=== PATIENT | female | born 1930 | race Hispanic/Latino ===

== ENCOUNTER 2018-05-11 13:52 | Inpatient (IN) | payer MEDICARE ==
[2018-05-11] MEDS ORDERED: ZOFRAN ONE (14:23)
[2018-05-11] MEDS ORDERED: NACL 0.9% 1000 ML 1,000 ML IV ONE (14:30)
[2018-05-11] MEDS ORDERED: ZOFRAN IV ONE (14:30)
[2018-05-11] MEDS ORDERED: NACL 0.9% 250ML 250 ML IV ONE (15:01)
[2018-05-11 15:03] LABS: Basophils % (Auto) 0.5 % (0.0-1.8); Eosinophils # (Auto) 0.3 K/mm3 (0.0-0.4); Eosinophils % (Auto) 3.3 % (0.0-4.3); Hematocrit 39.1 % (30.3-42.9); Lymphocytes # (Auto) 1.5 K/mm3 (1.2-5.4); Lymphocytes % (Auto) 17.9 % (13.4-35.0); Mean Corpuscular HGB Conc 33 % (30-34); Mean Corpuscular Hemoglobin 31 pg (28-32); Mean Corpuscular Volume 93 fl (79-97); Monocytes # (Auto) 0.6 K/mm3 (0.0-0.8); Monocytes % (Auto) 7.7 % (0.0-7.3); Platelet Count 199 K/mm3 (140-440); Red Blood Count 4.19 M/mm3 (3.65-5.03); Red Cell Distribution Width 13.6 % (13.2-15.2)
--- NOTE | 2018-05-11 15:03 | Emergency Department Report ---
<JOSE LUNA III - Last Filed: 05/11/18 22:18> ED General Adult HPI - General Chief complaint: Nausea/Vomiting/Diarrhea Stated complaint: HEADACHE Time Seen by Provider: 05/11/18 14:45 - Related Data Home Medications Medication Instructions Recorded Confirmed Last Taken Citalopram [Celexa] 20 mg PO HS 05/02/15 05/11/18 Unknown Levothyroxine Sodium [Unithroid] 100 mcg PO QAM 05/02/15 05/11/18 Unknown Memantine HCl [Namenda Xr] 21 mg PO QDAY 05/02/15 05/11/18 Unknown Alendronate Sodium [Fosamax] 70 mg PO 1XW 05/03/15 05/11/18 Unknown Acetaminophen [Acetaminophen TAB] 650 mg PO Q6H PRN 05/11/18 05/11/18 Unknown Aspirin [Adult Low Dose Aspirin EC] 81 mg PO DAILY 05/11/18 05/11/18 Unknown Cholecalciferol (Vitamin D3) 2,000 unit PO QDAY 05/11/18 05/11/18 Unknown [Vitamin D3] Cyanocobalamin (Vitamin B-12) 1,000 mcg PO DAILY 05/11/18 05/11/18 Unknown [Vitamin B-12] Docusate Sodium [Stool Softener] 100 mg PO BID PRN 05/11/18 05/11/18 Unknown Donepezil HCl [Aricept] 23 mg PO HS 05/11/18 05/11/18 Unknown amLODIPine [Norvasc] 10 mg PO DAILY 05/11/18 05/11/18 Unknown risperiDONE [Risperdal] 0.5 mg PO BID 05/11/18 05/11/18 Unknown Allergies Allergy/AdvReac Type Severity Reaction Status Date / Time No Known Allergies Allergy Unverified 08/14/13 15:30 ED Review of Systems ROS: Stated complaint: HEADACHE Other details as noted in HPI ED Past Medical Hx - Medications Home Medications: Home Medications Medication Instructions Recorded Confirmed Last Taken Type Citalopram [Celexa] 20 mg PO HS 05/02/15 05/11/18 Unknown History Levothyroxine Sodium [Unithroid] 100 mcg PO QAM 05/02/15 05/11/18 Unknown History Memantine HCl [Namenda Xr] 21 mg PO QDAY 05/02/15 05/11/18 Unknown History Alendronate Sodium [Fosamax] 70 mg PO 1XW 05/03/15 05/11/18 Unknown History Acetaminophen [Acetaminophen TAB] 650 mg PO Q6H PRN 05/11/18 05/11/18 Unknown History Aspirin [Adult Low Dose Aspirin EC] 81 mg PO DAILY 05/11/18 05/11/18 Unknown History Cholecalciferol (Vitamin D3) 2,000 unit PO QDAY 05/11/18 05/11/18 Unknown History [Vitamin D3] Cyanocobalamin (Vitamin B-12) 1,000 mcg PO DAILY 05/11/18 05/11/18 Unknown History [Vitamin B-12] Docusate Sodium [Stool Softener] 100 mg PO BID PRN 05/11/18 05/11/18 Unknown History Donepezil HCl [Aricept] 23 mg PO HS 05/11/18 05/11/18 Unknown History amLODIPine [Norvasc] 10 mg PO DAILY 05/11/18 05/11/18 Unknown History risperiDONE [Risperdal] 0.5 mg PO BID 05/11/18 05/11/18 Unknown History ED Course Vital Signs 05/11/18 05/11/18 05/11/18 13:54 17:13 19:14 Temperature 97.7 F 98.7 F Pulse Rate 58 L Respiratory 16 18 Rate Blood Pressure 116/53 O2 Sat by Pulse 97 Oximetry 05/11/18 05/11/18 05/11/18 19:41 19:45 20:00 Temperature Pulse Rate Respiratory Rate Blood Pressure 114/63 114/63 116/68 O2 Sat by Pulse 94 92 Oximetry 05/11/18 05/11/18 05/11/18 20:18 20:30 20:56 Temperature Pulse Rate Respiratory Rate Blood Pressure 114/63 114/63 114/63 O2 Sat by Pulse 80 L Oximetry 05/11/18 05/11/18 05/11/18 21:00 21:18 21:53 Temperature Pulse Rate Respiratory Rate Blood Pressure 116/86 116/86 116/86 O2 Sat by Pulse 96 Oximetry 05/12/18 00:27 Temperature Pulse Rate Respiratory Rate Blood Pressure 116/86 O2 Sat by Pulse 80 L Oximetry - Consultations Consultation #1: Dr. Arauz consulted for admission. Dr. Arauz to assume care and admit patient. Dr. Arauz given full report. 05/11/18 22:17 ED Medical Decision Making - Lab Data Result diagrams: 05/11/18 14:41 05/11/18 14:41 - Medical Decision Making Patient is a 87-year-old female presents for for nausea vomiting, shortness of breath and altered mental status. Patient had a CT scan of the head done which is negative. Patient had a CT of the abdomen with significant only for constipation. Patient also had a chest CTA and it was negative for PE. Patient on lab was found to have a lactic acidosis. Patient appears to be improving however will admit patient to hospitalist service for further evaluation and treatment and observation. Critical care attestation.: If time is entered above; I have spent that time in minutes in the direct care of this critically ill patient, excluding procedure time. ED Disposition Clinical Impression: Dementia, SOB (shortness of breath), Lactic acid acidosis Nausea & vomiting Qualifiers: Vomiting type: unspecified Vomiting Intractability: non-intractable Qualified Code(s): R11.2 - Nausea with vomiting, unspecified Altered mental state Qualifiers: Altered mental status type: unspecified Qualified Code(s): R41.82 - Altered mental status, unspecified Headache Qualifiers: Headache type: unspecified Headache chronicity pattern: acute headache Intractability: intractable Qualified Code(s): R51 - Headache Disposition: 09 OP ADMIT IP TO THIS HOSP Is pt being admited?: Yes Does the pt Need Aspirin: No Condition: Serious Time of Disposition: 22:16 <JANETT LAY - Last Filed: 05/14/18 06:21> ED General Adult HPI - General Source: patient, family, EMS (ems notes not available at time of chart dictation), RN notes reviewed, old records reviewed ([facility] records) Mode of arrival: Stretcher Limitations: Other (patient is demented. Patient is a poor historian) - History of Present Illness Initial comments: This is an 87-year-old female who is not known to this provider previously. The patient has a history of advanced dementia, pulmonary embolus, and is not currently on systemic anticoagulation. She is a resident at a local [facility], [facility] She is sent to the ER for evaluation of nonspecific symptoms. I contacted the [facility] and discussed the events with the patient's caring nurse, Ms. Pritchard. The patient's nurse indicates that earlier on today, the patient was in her usual state of health, when the residence patent legal assistant noticed that the patient had some shaking activity, and reported of the patient's eyes looked "glossy." She also reported that the patient's breathing looked "labored." She reports that prior to this, the patient was in her usual state of health. In the emergency room, the patient denies all complaints. She denies headache, neck pain, chest pain, abdominal pain, shortness of breath, extremity weakness, urinary symptoms. The patient is accompanied by her son, Mr. BRENDA Salmeron; [phone]. He reports the patient appears to be at her baseline and does not endorse any additional complaints at this time. He is not certain the patient's advanced directives. The patient has no complaints or symptoms at this time, and therefore cannot describe the qualitative nature of her symptoms, radiation, exacerbating or relieving factors. -: This morning Radiation: other Quality: other Consistency: other Improves with: other Worsens with: other Associated Symptoms: denies other symptoms, other ED Review of Systems Comment: as per history of present illness (secondary to dementia) ED Past Medical Hx - Past Medical History Hx Hypertension: Yes Hx Deep Vein Thrombosis: Yes Hx Psychiatric Treatment: Yes (psychosis) Hx Dementia: Yes Additional medical history: "bad memory", hypothyroid - Surgical History Additional Surgical History: hysterectomy - Social History Smoking Status: Former Smoker Substance Use Type: None ED Physical Exam - General Limitations: Other (patient is demented) General appearance: alert, in no apparent distress - Head Head exam: Present: atraumatic, normocephalic - Eye Eye exam: Present: normal appearance, PERRL, EOMI, other (visual acuity intact to finger counting, color perception, reading at a close distance). Absent: nystagmus - ENT ENT exam: Present: normal exam, normal orophraynx, mucous membranes moist, normal external ear exam - Neck Neck exam: Present: normal inspection, full ROM. Absent: tenderness, meningismus - Respiratory Respiratory exam: Present: normal lung sounds bilaterally. Absent: respiratory distress - Cardiovascular Cardiovascular Exam: Present: regular rate, normal rhythm, normal heart sounds. Absent: bradycardia, tachycardia, irregular rhythm, systolic murmur, diastolic murmur, rubs, gallop - GI/Abdominal GI/Abdominal exam: Present: soft. Absent: distended, tenderness, guarding, rebound, rigid, pulsatile mass - Extremities Exam Extremities exam: Present: normal inspection, full ROM, normal capillary refill , pedal edema, other (2+ pulses noted in the bilateral upper, lower extremities. Compartments soft. No long bony tenderness. The pelvis is stable.). Absent: calf tenderness - Back Exam Back exam: Present: normal inspection, full ROM. Absent: tenderness, CVA tenderness (R), paraspinal tenderness, vertebral tenderness - Neurological Exam Neurological exam: Present: alert (patient is alert to name, month and location) , CN II-XII intact (there is no temporal tenderness), other (Extraocular movements intact. Tongue midline. No facial droop. Facial sensation intact to light touch in the V1, V2, V3 distribution bilaterally. 5 and 5 strength in 4 extremities.. Sensation is intact to light touch in 4 extremities.). Absent : motor sensory deficit - Psychiatric Psychiatric exam: Present: flat affect - Skin Skin exam: Present: warm, dry, intact, normal color. Absent: rash ED Course - Reevaluation(s) Reevaluation #1: 05/11/18 17:09 Differential diagnosis, including but not limited to: Intracranial hemorrhage, pneumonia, pulmonary embolus, intra-abdominal infection, urinary tract infection , arrhythmia, structural cardiac disease Assessment and plan: 87-year-old female who was sent to the ER for evaluation of possible convulsion, change in respiratory pattern and nonspecific symptoms. The patient has no recollection of these events. She has no complaints at this time. Her physical exam shows lower extremity edema, left greater than right. A DVT study was negative. Her EKG is essentially unremarkable. CT scan of the brain, chest, abdomen, pelvis is pending. Extensive discussion had with son. If no significant objective abnormality can be demonstrated or is demonstrated in the ER, the patient's son prefers that the patient be discharged back to the [facility], as he is concerned about iatrogenic risks of hospitalization in the extreme elderly, including delirium, DVT, hospital- acquired diarrhea, slip and fall, sundowning. Given her advanced age, I agree with this and it is my pain of the patient's son has her best goals of care and mine. He is not certain ultimately about her advance directives. Reevaluation #2: 09/06/18 19:51 The patient has been observed in the ER for 6 hours without clinical decompensation. She's not had any episodes of seizures, syncope or any kind distress whatsoever. A noncontrast CT scan of the brain is negative. Elevated lactic acid is appreciated, however she is not hypotensive, and does not appear to be demonstrating signs of acute or occult bacteremia. This may be a type II lactic acidosis. Based on the clinical history, I do not currently suspect tissue dysoxia, inadequate perfusion, or sepsis., I rediscussed with the patient's son, and he again reiterates his desire for the patient to be discharged back to the [facility] if no significant disease is noted on CT scans. Care will be transferred to the oncoming physician, Dr. Caitlin Luna, to follow up on CT scan results and repeat lactic acid. Plan to discharge if no significant findings noted. 05/11/18 19:53 ED Medical Decision Making - Lab Data Result diagrams: 05/12/18 04:47 05/12/18 04:47 Vital Signs 05/11/18 13:54 Temperature 97.7 F Pulse Rate 58 L Respiratory 16 Rate Blood Pressure 116/53 O2 Sat by Pulse 97 Oximetry Lab Results 05/11/18 05/11/18 05/11/18 Range/Units 14:41 14:41 15:24 WBC 8.3 (4.5-11.0) K/mm3 RBC 4.19 (3.65-5.03) M/mm3 Hgb 13.0 (10.1-14.3) gm/dl Hct 39.1 (30.3-42.9) % MCV 93 (79-97) fl MCH 31 (28-32) pg MCHC 33 (30-34) % RDW 13.6 (13.2-15.2) % Plt Count 199 (140-440) K/mm3 Lymph % (Auto) 17.9 (13.4-35.0) % Billings % (Auto) 7.7 H (0.0-7.3) % Eos % (Auto) 3.3 (0.0-4.3) % Baso % (Auto) 0.5 (0.0-1.8) % Lymph # 1.5 (1.2-5.4) K/mm3 Billings # 0.6 (0.0-0.8) K/mm3 Eos # 0.3 (0.0-0.4) K/mm3 Baso # 0.0 (0.0-0.1) K/mm3 Seg Neutrophils % 70.6 H (40.0-70.0) % Seg Neutrophils # 5.8 (1.8-7.7) K/mm3 PT 13.8 (12.2-14.9) Sec. INR 1.01 (0.87-1.13) APTT 25.8 (24.2-36.6) Sec. Sodium 140 (137-145) mmol/L Potassium 3.7 (3.6-5.0) mmol/L Chloride 104.0 (98-107) mmol/L Carbon Dioxide 23 (22-30) mmol/L Anion Gap 17 mmol/L BUN 18 H (7-17) mg/dL Creatinine 0.8 (0.7-1.2) mg/dL Estimated GFR > 60 ml/min BUN/Creatinine Ratio 23 % Glucose 172 H (65-100) mg/dL Lactic Acid (0.7-2.0) mmol/L Calcium 9.5 (8.4-10.2) mg/dL Total Bilirubin 0.30 (0.1-1.2) mg/dL AST 23 (5-40) units/L ALT 23 (7-56) units/L Alkaline Phosphatase 61 (35-129) units/L Troponin T (0.00-0.029) ng/mL Total Protein 6.8 (6.3-8.2) g/dL Albumin 3.9 (3.9-5) g/dL Albumin/Globulin Ratio 1.3 % Lipase 19 (13-60) units/L 05/11/18 05/11/18 Range/Units 15:24 15:24 WBC (4.5-11.0) K/mm3 RBC (3.65-5.03) M/mm3 Hgb (10.1-14.3) gm/dl Hct (30.3-42.9) % MCV (79-97) fl MCH (28-32) pg MCHC (30-34) % RDW (13.2-15.2) % Plt Count (140-440) K/mm3 Lymph % (Auto) (13.4-35.0) % Billings % (Auto) (0.0-7.3) % Eos % (Auto) (0.0-4.3) % Baso % (Auto) (0.0-1.8) % Lymph # (1.2-5.4) K/mm3 Billings # (0.0-0.8) K/mm3 Eos # (0.0-0.4) K/mm3 Baso # (0.0-0.1) K/mm3 Seg Neutrophils % (40.0-70.0) % Seg Neutrophils # (1.8-7.7) K/mm3 PT (12.2-14.9) Sec. INR (0.87-1.13) APTT (24.2-36.6) Sec. Sodium (137-145) mmol/L Potassium (3.6-5.0) mmol/L Chloride (98-107) mmol/L Carbon Dioxide (22-30) mmol/L Anion Gap mmol/L BUN (7-17) mg/dL Creatinine (0.7-1.2) mg/dL Estimated GFR ml/min BUN/Creatinine Ratio % Glucose (65-100) mg/dL Lactic Acid 2.20 H* (0.7-2.0) mmol/L Calcium (8.4-10.2) mg/dL Total Bilirubin (0.1-1.2) mg/dL AST (5-40) units/L ALT (7-56) units/L Alkaline Phosphatase (35-129) units/L Troponin T < 0.010 (0.00-0.029) ng/mL Total Protein (6.3-8.2) g/dL Albumin (3.9-5) g/dL Albumin/Globulin Ratio % Lipase (13-60) units/L - EKG Data 05/11/18 17:12 Normal sinus, 70 beats per minute, normal axis, normal intervals, borderline prolonged OH interval, motion artifact, not a STEMI. - Radiology Data Radiology results: report reviewed, image reviewed Bilateral lower extremity DVT study is negative as per technologist. Formal interpretation is pending from physician. ED Disposition Is pt being admited?: No Does the pt Need Aspirin: No
[2018-05-11 15:10] LABS: Alanine Aminotransferase 23 units/L (7-56); Albumin 3.9 g/dL (3.9-5); BUN/Creatinine Ratio 23; Blood Urea Nitrogen 18 mg/dL (7-17); Calcium 9.5 mg/dL (8.4-10.2); Hemolysis Index 16; Lipase 19 units/L (13-60)
[2018-05-11 16:14] LABS: INR 1.01 (0.87-1.13)
[2018-05-11 16:15] LABS: Partial Thromboplastin Time 25.8 Sec. (24.2-36.6)
[2018-05-11 17:42] LABS: Bilirubin,Urine NEG (Negative); Blood,Urine NEG (Negative); Color,Urine Yellow (Yellow); Mucus,Urine FEW /HPF; Urobilinogen,Urine < 2.0 mg/dL (<2.0)
--- NOTE | 2018-05-11 19:13 | Cat Scan Report ---
FINAL REPORT PROCEDURE: CT HEAD/BRAIN WO CON TECHNIQUE: Computerized tomography of the head was performed without contrast material. HISTORY: headache , nausea COMPARISON: No prior studies are available for comparison. FINDINGS: There are diffuse involutional changes, with prominence of the ventricles and the sulci. There is white matter low attenuation, compatible with chronic microvascular ischemic changes. Intracranial arteries are symmetric in density. No fracture is seen. There is right maxillary sinus mucosal thickening IMPRESSION: No CT evidence of acute intracranial abnormality. Right maxillary sinus mucosal thickening
[2018-05-11] MEDS ORDERED: NACL 0.9% 500 ML 500 ML IV ONE (19:44)
--- NOTE | 2018-05-11 20:07 | Cat Scan Report ---
FINAL REPORT PROCEDURE: CT ANGIO PE CHEST/ABD W/ CONT-PANEL TECHNIQUE: Computerized tomographic angiography of the chest was performed after the IV injection of iodinated nonionic contrast including image processing. The image data was postprocessed using 2-dimensional multiplanar reformatted (MPR) and 3-dimensional (MIP and/or volume rendered) techniques. Computerized axial tomography of the abdomen, and pelvis after the IV injection of iodinated nonionic contrast was performed. HISTORY: syncope, hx of pe COMPARISON: No prior studies are available for comparison. FINDINGS: Heart and pericardium: No pericardial effusion or thickening Thoracic aorta: There is atherosclerotic calcification, with no aneurysm or dissection Pulmonary vasculature: There is limited evaluation of the pulmonary arteries in the lung bases due to motion artifact and streak artifact. Otherwise no evidence of pulmonary emboli Mediastinum: No enlarged thoracic lymph nodes. Lungs: Emphysematous changes bilaterally. No pulmonary infiltrates Pleural space: No effusion, thickening, or pneumothorax. Liver: Normal size and attenuation. Spleen: Normal size and attenuation. Gallbladder and biliary system: Normal. Pancreas: Normal. Adrenals: Normal. Kidneys: Normal. GI tract: There is a large volume of stool in the distal colon. No bowel obstruction or inflammation is seen. The appendix is not diagnostically visualized. Lymph nodes and mesentery: Normal. Vasculature: Normal. Bladder: Normal. Reproductive organs: Uterus is not visualized Peritoneum: No free fluid Musculoskeletal structures: There are multilevel degenerative disc and facet arthritic changes of the thoracolumbar spine. There is depression of the superior endplate of T12, of uncertain chronicity. Other: None. IMPRESSION: There is limited evaluation of the pulmonary arteries in the lung bases due to motion artifact and streak artifact. Otherwise no evidence of pulmonary emboli Constipation PROCEDURE: TECHNIQUE: HISTORY: COMPARISON: FINDINGS: IMPRESSION:
--- NOTE | 2018-05-11 23:01 | History and Physical Report ---
History of Present Illness Date of examination: 05/11/18 History of present illness: 87-year-old woman with a history of hypertension, dementia, DVT, hypothyroidism [facility] from the [facility] because her breathing look labored. In the emergency room, patient offered no complaints, her lactic acid was elevated and she was therefore admitted for further evaluation History and Review of system is unobtainable secondary to dementia PAST MEDICAL HISTORY:hypertension, dementia, DVT, hypothyroidism PAST SURGICAL HISTORY: Hysterectomy SOCIAL HISTORY: No alcohol, no drugs, tobacco, [facility] resident FAMILY HISTORY: Unknown Medications and Allergies Allergies Allergy/AdvReac Type Severity Reaction Status Date / Time No Known Allergies Allergy Unverified 08/14/13 15:30 Home Medications Medication Instructions Recorded Confirmed Last Taken Type Citalopram [Celexa] 20 mg PO HS 05/02/15 05/11/18 Unknown History Levothyroxine Sodium [Unithroid] 100 mcg PO QAM 05/02/15 05/11/18 Unknown History Memantine HCl [Namenda Xr] 21 mg PO QDAY 05/02/15 05/11/18 Unknown History Alendronate Sodium [Fosamax] 70 mg PO 1XW 05/03/15 05/11/18 Unknown History Acetaminophen [Tylenol] 650 mg PO Q6H PRN 05/11/18 05/11/18 Unknown History Aspirin [Adult Low Dose Aspirin EC] 81 mg PO DAILY 05/11/18 05/11/18 Unknown History Cholecalciferol (Vitamin D3) 2,000 unit PO QDAY 05/11/18 05/11/18 Unknown History [Vitamin D3] Cyanocobalamin (Vitamin B-12) 1,000 mcg PO DAILY 05/11/18 05/11/18 Unknown History [Vitamin B-12] Docusate Sodium [Stool Softener] 100 mg PO BID PRN 05/11/18 05/11/18 Unknown History Donepezil HCl [Aricept] 23 mg PO HS 05/11/18 05/11/18 Unknown History amLODIPine [Norvasc] 10 mg PO DAILY 05/11/18 05/11/18 Unknown History risperiDONE [Risperdal] 0.5 mg PO BID 05/11/18 05/11/18 Unknown History Exam - Physical Exam Narrative exam: Gen. appearance: Patient lying in bed, no apparent distress HEENT: Normocephalic, atraumatic, pupils equally round and reactive to light, extraocular movement intact, and no sclericterus,. No JVD or thyromegaly or nodule,neck supple, no carotid bruit ,mucous membranes moist, no exudate or erythema Heart: S1, S2, regular rate and rhythm Lungs: Clear bilaterally, breathing comfortable Abdomen: Positive bowel sounds, non-tender, nondistended, no organomegaly Extremity:no edema cyanosis, clubbing Skin: no rash, dry, warm Neuro: Difficult to assess - Constitutional Vitals: Temp Pulse Resp BP Pulse Ox 98.7 F 58 L 18 114/63 80 L 05/11/18 17:13 05/11/18 13:54 05/11/18 19:14 05/11/18 20:30 05/11/18 20:30 Results - Labs CBC & Chem 7: 05/12/18 04:47 05/11/18 14:41 Labs: Abnormal lab results 05/11/18 05/11/18 05/11/18 Range/Units 14:41 14:41 15:24 Ramsey % (Auto) 7.7 H (0.0-7.3) % Seg Neutrophils % 70.6 H (40.0-70.0) % BUN 18 H (7-17) mg/dL Glucose 172 H (65-100) mg/dL Lactic Acid 2.20 H* (0.7-2.0) mmol/L 05/11/18 05/11/18 05/11/18 Range/Units 17:20 18:43 21:17 Ramsey % (Auto) (0.0-7.3) % Seg Neutrophils % (40.0-70.0) % BUN (7-17) mg/dL Glucose (65-100) mg/dL Lactic Acid 3.30 H* 3.00 H* 2.10 H* (0.7-2.0) mmol/L - Imaging and Cardiology CT scan - abdomen: report reviewed CT scan - chest: report reviewed CT Scan - head: report reviewed CT scan - pelvis: report reviewed Assessment and Plan Assessment Elevated lactic acid, no sign of infection, abdominal pathology Hypertension dementia Hypothyroidism Plan Admit to medicine IV fluid, monitor lactate Hold antibiotics at this time, no sign of infection DVT prophylaxis Follow Doppler of the lower extremity
[2018-05-12] MEDS ORDERED: TYLENOL PO PRN (02:49)
[2018-05-12] MEDS ORDERED: SODIUM CHLORIDE FLUSH SYRINGE 10 ML IV PRN (02:49)
[2018-05-12] MEDS ORDERED: ZOFRAN IV PRN (02:49)
[2018-05-12] MEDS ORDERED: NACL 0.9% 1000 ML 1,000 ML IV SCH (03:00)
[2018-05-12 05:51] LABS: Basophils % (Auto) 0.4 % (0.0-1.8); Eosinophils # (Auto) 0.3 K/mm3 (0.0-0.4); Eosinophils % (Auto) 3.3 % (0.0-4.3); Hematocrit 37.9 % (30.3-42.9); Hemoglobin 12.6 gm/dl (10.1-14.3); Lymphocytes # (Auto) 2.3 K/mm3 (1.2-5.4); Lymphocytes % (Auto) 28.4 % (13.4-35.0); Mean Corpuscular HGB Conc 33 % (30-34); Mean Corpuscular Hemoglobin 31 pg (28-32); Mean Corpuscular Volume 92 fl (79-97); Monocytes # (Auto) 0.7 K/mm3 (0.0-0.8); Monocytes % (Auto) 9.3 % (0.0-7.3); Platelet Count 205 K/mm3 (140-440); Red Cell Distribution Width 13.6 % (13.2-15.2)
[2018-05-12 06:13] LABS: BUN/Creatinine Ratio 17; Blood Urea Nitrogen 12 mg/dL (7-17); Hemolysis Index 10
[2018-05-12] MEDS ORDERED: LOVENOX SUB-Q SCH ×2 (10:00)
[2018-05-12] MEDS ORDERED: SODIUM CHLORIDE FLUSH SYRINGE 10 ML IV SCH (10:00)
[2018-05-12] MEDS ORDERED: COLACE PO PRN (11:40)
[2018-05-12] MEDS ORDERED: FOSAMAX PO SCH (12:00)
[2018-05-12 14:22] VITALS: BP 138/69
--- NOTE | 2018-05-12 15:04 | Discharge Summary ---
Providers - Providers Date of Admission: 05/11/18 23:00 Date of discharge: 05/12/18 Attending physician: MARGARET STEWART Primary care physician: WOR[employer] TE[employer]ER Hospitalization Condition: Serious Hospital course: Discharge diagnosis: Elevated lactic acid, no sign of infection, from dehydration, resolved Hypertension dementia Hypothyroidism Disposition: DC/[place]-03 [facility] Time spent for discharge: 34 minutes Exam - Constitutional Vitals: Temp Pulse Resp BP Pulse Ox 99.2 F 62 18 138/69 94 05/12/18 13:19 05/12/18 13:19 05/12/18 13:19 05/12/18 13:05/12/18 13:19 General appearance: Present: no acute distress, other (elderly) - EENT Eyes: Present: PERRL ENT: hearing intact, clear oral mucosa - Neck Neck: Present: supple, normal ROM - Respiratory Respiratory effort: normal Respiratory: bilateral: CTA - Cardiovascular Heart Sounds: Present: S1 & S2. Absent: rub, click - Extremities Extremities: pulses symmetrical, No edema Peripheral Pulses: within normal limits - Abdominal General gastrointestinal: Present: soft, non-tender, non-distended, normal bowel sounds - Integumentary Integumentary: Present: clear, warm, dry - Musculoskeletal Musculoskeletal: gait normal, strength equal bilaterally - Psychiatric Psychiatric: no intact judgment & insight, memory intact, cooperative - Neurologic Neurologic: CNII-XII intact, moves all extremities Plan Activity: up only with assistance Weight Bearing Status: Non-Weight Bearing Diet: low fat Follow up with: PRIMARY CAREMD [Primary Care Provider] - 3-5 Days
[2018-05-12] MEDS ORDERED: DONEPEZIL HCL 23 MG PO SCH (22:00)
[2018-05-12] MEDS ORDERED: celeXA PO SCH (22:00)
[2018-05-12] MEDS ORDERED: NON-FORMULARY (Risperidone [Risperdal] 0.5 MG) PO SCH (22:00)
[2018-05-12] MEDS ORDERED: RisperDAL PO SCH (22:00)
[2018-05-13] MEDS ORDERED: SYNTHROID PO SCH (10:00)
[2018-05-13] MEDS ORDERED: MEMANTINE HCL 21 MG PO SCH (10:00)
[2018-05-13] MEDS ORDERED: NORVASC PO SCH (10:00)
[2018-05-13] MEDS ORDERED: NON-FORMULARY (Cholecalciferol (Vitamin D3) [Vitamin D3] 2,000 UNIT) PO SCH (10:00)
[2018-05-13] MEDS ORDERED: VITAMIN B-12 PO SCH (10:00)
[2018-05-13] MEDS ORDERED: HALFPRIN EC PO SCH (10:00)
[2018-05-13] MEDS ORDERED: VITAMIN D3 PO SCH (10:00)
== END 2018-05-12 07:15 | DRG 641 ==
LOC: ED 13:52 → 2B-ACE 23:00
PROVIDERS: ADMIT Internal Medicine; ATTEND Internal Medicine
DX: E86.0 Dehydration (principal); E87.2 Acidosis; F03.90 Unspecified dementia, unspecified severity, without behavioral disturbance, psychotic disturbance, mood disturbance, and anxiety; R51 Headache; I10 Essential (primary) hypertension; E03.9 Hypothyroidism, unspecified; Z86.718 Personal history of other venous thrombosis and embolism; Z79.01 Long term (current) use of anticoagulants; Z90.710 Acquired absence of both cervix and uterus; Z79.82 Long term (current) use of aspirin; Z79.899 Other long term (current) drug therapy; Z87.891 Personal history of nicotine dependence
CPT/HCPCS: 36415; 70450; 71275; 74177; 80048; 80053; 81001; 82140; 83690; 84484; 85025; 85610; 85730; 93005; 93010; 93970; 96361; 96374; J1650; J2405; J7030; J7050; Q9967